=== PATIENT | female | born 1985 | race Caucasian/White ===

== ENCOUNTER → 2019-02-25 | Outpatient (REF) ==
[~2019-02-25] MED LIST: AMOXICILLIN 8751 TAB PO; CEPHALEXIN500 M1 PO; FLONASE NASAL S16 GM NS; IUD; LEVAQUIN 5500 MG/TAB PO; LORTAB 5/500 501 TAB PO; PERCOCET 5/321 UDTAB PO; PHENERGAN 25 TA25 MG PO; REGLAN 10MG10 MG/TAB PO; REGLAN 5MG5 MG PO; TRAMADOL50 MG PO; WELLBUTRIN SR150 M1 PO; WELLBUTRIN XL300 MG PO
== END ==
LOC: ZLAB.WCH 09:18
DX: Z01.89 Encounter for other specified special examinations (principal)

== ENCOUNTER → 2020-01-07 | Outpatient (CLI) | payer OTHER, MEDICAID | LOC: ZCOL.LAB 17:42 | DX: R06.02 Shortness of breath (principal) ==

== ENCOUNTER → 2020-01-20 | Outpatient (CLI) | payer OTHER ==
[~2020-01-20] MED LIST changes: +CYMBALTA 30MG30 MG PO; +CYMBALTA 60MG60 MG PO; +ZANTAC 150MG T150 MG PO
== END ==
LOC: COL.RAD 07:29
DX: Z53.9 Procedure and treatment not carried out, unspecified reason (principal)

== ENCOUNTER → 2020-01-21 | Outpatient (CLI) | payer OTHER ==
[~2020-01-21] MED LIST changes: -CYMBALTA 30MG30 MG PO; -CYMBALTA 60MG60 MG PO; -ZANTAC 150MG T150 MG PO
== END ==
LOC: COL.RAD 08:17
DX: R79.89 Other specified abnormal findings of blood chemistry (principal); R06.02 Shortness of breath; Z90.49 Acquired absence of other specified parts of digestive tract
CPT/HCPCS: Q9967

== ENCOUNTER → 2020-01-25 | Outpatient (CLI) | payer OTHER | LOC: COL.LAB 15:09 | DX: R07.89 Other chest pain (principal) ==

== ENCOUNTER 2020-03-27 22:03 | Emergency (ER) | payer OTHER ==
[~2020-03-27] VITALS: Ht 160 cm; Wt 72.7 kg
[~2020-03-27 22:03] MED LIST changes: +CYMBALTA 30MG30 MG PO; +CYMBALTA 60MG60 MG PO; +ZANTAC 150MG T150 MG PO
[2020-03-27 22:18] VITALS: TEMP 97.8
[2020-03-27 23:11] LABS: COLLECTION METHOD CLEAN CATCH
[2020-03-27 23:20] LABS: PH 6 (5-8); SQUAMOUS EPITHELIAL 0-2 /hpf; URINE APPEARANCE Clear; URINE BACTERIA None Seen /hpf; URINE BILIRUBIN Negative (NEGATIVE); URINE BLOOD Negative (NEGATIVE); URINE COLOR Yellow; URINE GLUCOSE Negative (NEGATIVE); URINE KETONE Negative (NEGATIVE); URINE LEUKOCYTE ESTERASE Negative (NEGATIVE); URINE NITRATE Negative (NEGATIVE); URINE PROTEIN(semi-quant) Negative (NEGATIVE); URINE RBC 0-2 /hpf; URINE UROBILINOGEN Negative (NEGATIVE)
[2020-03-27 23:43] LABS: BASO # 0.1 (0.0-0.2); BASO % 0.5 % (0.0-2.0); EOS # 0.3 (0.0-0.7); GRAN # 5.8 (1.4-6.5); GRAN % 53.2 % (42.2-75.2); HEMATOCRIT 38.8 % (37.0-47.0); HEMOGLOBIN 13.2 g/dl (12.5-16.0); LYMPH # 3.6 (1.2-3.4); MEAN CELL VOLUME 99 fl (80.0-100.0); MEAN CORPUSCULAR HEMOGLOBIN 34 pg (27.0-31.0); MEAN CORPUSCULAR HGB CONC 34 g/dl (33.0-37.0); MONO # 1.1 (0.1-0.6); PLATELET COUNT 297 K/mm3 (130-400); RED BLOOD COUNT 3.92 M/mm3 (4.10-5.30); REDCELL DISTRIBUTION WIDTH-CV 12.5 % (11.5-14.5)
[2020-03-27 23:57] LABS: ALBUMIN 3.4 gm/dL (3.5-5.0); BILIRUBIN,TOTAL 0.2 mg/dL (0.0-1.0); C-REACTIVE PROTEIN 1.6 mg/dL (0.0-0.9); CALCIUM 8.4 mg/dL (8.4-10.2); CREATININE, serum 0.57 (0.52-1.25); POTASSIUM 3.9 mmol/L (3.4-5.0)
[2020-03-28 01:29] VITALS: BP 121/80; PULSE 84
== END 2020-03-28 01:59 | disposition home or self-care (01) ==
LOC: COL.ER 22:03
PROVIDERS: Emergency Medicine
DX: R10.11 Right upper quadrant pain (principal); R10.12 Left upper quadrant pain; F17.210 Nicotine dependence, cigarettes, uncomplicated; Z90.49 Acquired absence of other specified parts of digestive tract; Z90.89 Acquired absence of other organs
CPT/HCPCS: J1170; J2405; J7030

== ENCOUNTER → 2020-05-03 | Outpatient (CLI) | payer OTHER | LOC: COL.LAB 08:38 | DX: Z20.828 Contact with and (suspected) exposure to other viral communicable diseases (principal) ==

== ENCOUNTER 2022-03-13 14:28 | Day surgery (SDC) | payer OTHER ==
[~2022-03-13] VITALS: Ht 160 cm; Wt 77.7 kg
[2022-03-13] MEDS ORDERED: VYVANSE30 MG PO (14:56)
[2022-03-13] MEDS ORDERED: ESTRADERM0.05 MG/24 TD (14:56)
[2022-03-13 14:59] VITALS: BP 129/88; PULSE 83; TEMP 97.9
[2022-03-13] MEDS ORDERED: PYRIDIUM 100MG100 MG PO (15:24)
[2022-03-13 16:35] VITALS: BP 136/78; PULSE 56
[2022-03-13 16:39] VITALS: TEMP 98.6
[2022-03-13 16:50] VITALS: BP 148/77; PULSE 63
[2022-03-13 17:05] VITALS: BP 134/77; PULSE 71
--- NOTE | 2022-03-13 17:22 | NUR ---
1635: Patient arrived back into [facility] from PACU. Patient is alert and oriented. Vital signs stable on room air. Report received from DAO Pierre. Patient requesting sprite and blueberry muffins. Patient up to restroom with stand by assist. Patient denies pain and nausea. Call light left within reach. at bedside. 1650: Patient vitally stable on room air. Tolerating food and drink well. 1705: Patient meets discharge criteria. IV removed without complications. Went through discharge instructions with patient and . Patient got dressed. Escorted to patient entrance via wheelchair. Patient got into personal vehicle unassisted and left in the care of their family.
== END 2022-03-13 17:10 | disposition home or self-care (01) ==
LOC: SDCO 14:28
DX: N13.2 Hydronephrosis with renal and ureteral calculous obstruction (principal); K21.9 Gastro-esophageal reflux disease without esophagitis; K44.9 Diaphragmatic hernia without obstruction or gangrene; F17.210 Nicotine dependence, cigarettes, uncomplicated
CPT/HCPCS: C1769; C2617; J0690; J1100; J1200; J2405; J2704; J3010; J7120; Q9967

== ENCOUNTER → 2022-03-23 | Outpatient (CLI) | payer OTHER ==
[~2022-03-23] MED LIST changes: +ESTRADERM0.05 MG/24 TD; +PYRIDIUM 100MG100 MG PO; +VYVANSE30 MG PO
== END ==
LOC: COL.RAD 10:54
DX: N20.2 Calculus of kidney with calculus of ureter (principal)

== ENCOUNTER → 2022-06-25 | Outpatient (RCR) | payer OTHER | LOC: WSOH | DX: S23.41XA Sprain of ribs, initial encounter (principal); Y99.0 Civilian activity done for income or pay; F50.81 Binge eating disorder ==

== ENCOUNTER → 2024-04-08 | Outpatient (CLI) | payer OTHER | LOC: COL.RAD 08:59 | DX: K44.9 Diaphragmatic hernia without obstruction or gangrene (principal); K21.9 Gastro-esophageal reflux disease without esophagitis; K64.2 Third degree hemorrhoids; D18.03 Hemangioma of intra-abdominal structures; Z98.890 Other specified postprocedural states ==